=== PATIENT | male | born 1955 | race Caucasian/White ===

== ENCOUNTER → 2017-04-25 12:53 | Day surgery (SDC) | payer OTHER, SELFPAY ==
[2017-04-25 13:15] VITALS: BP 142/87; PULSE 103; RESP 20; TEMP 35.8; O2SAT 97; BMI 36.4
--- NOTE | 2017-04-25 13:57 | HMH.PMPROC ---
- Procedure Date: 04/25/17 Time: 13:57 Anesthesiologist:: Corey Ramos MD Complications:: None Pre-procedure Diagnosis:: Degenerative disc disease of lumbar spine multiple levels with lumbar postlaminectomy syndrome Post-procedure Diagnosis:: Same Indications for Procedure:: Patient is a pleasant 61-year-old white male who we are treating for low back pain with lumbar radiculopathy symptoms and lumbar postlaminectomy syndrome. He currently has an intrathecal morphine pain pump going at 5 mg per day. He is doing well with his intrathecal morphine pain pump. We will refill him today. He spends the majority of his time in a wheelchair. Motor strength of the lower extremities is 3-4 out of 5. Motor strength of the upper extremities is 5/5. There is no gross sensory deficit. He is having some increased pain down his legs. We will order lumbar MRI to discern any change in pathology. Procedure Details:: Pump refill informed consent was obtained and the risks and benefits of the procedure was explained to the patient. The patient was taken to the procedure room. The pump was interrogated. The area over the pump was prepped using ChloraPrep. The pump was accessed with a 22-gauge needle. Approximately 8 mL's of the intrathecal solution was withdrawn and discarded. The pump was then refilled with 20 mL's of intrathecal morphine 25 mg per ml. The pump was interrogated and the infusion was continued at 5 mg per day. The patient tolerated the procedure well with no complication. Plan and Disposition:: We will follow-up with him after his MRI. If he has any problems or questions she is to call me in the pain clinic
[2017-04-25 14:00] VITALS: BP 155/76; PULSE 88; RESP 20
[2017-04-25 14:09] VITALS: BP 149/86; PULSE 88; RESP 20
[2017-04-25 14:24] VITALS: BP 120/87; PULSE 99; RESP 18; TEMP 35.8; O2SAT 95
[2017-04-25 15:31] LABS: Amphetamine/Metha Screen,Urine Negative ng/mL (<1000); Barbiturates Screen,Urine Negative ng/mL (<200); Benzodiazepines Screen,Urine Positive ng/mL (200); Cannabinoid Screen,Urine Negative ng/mL (<50); Cocaine Screen,Urine Negative ng/g (<300); Methadone Screen,Urine Negative ng/mL (<300); Opiate Screen,Urine Positive ng/mL (<300); Phencyclidine Screen,Urine Negative ng/mL (<25)
[2017-04-30 18:11] LABS: Codeine Negative (Cutoff=100); Hydrocodone Negative (Cutoff=100); Hydromorphone Negative (Cutoff=100); Morphine Positive (.)
[2017-05-01 11:50] LABS: Opiates Positive (.)
== END ==
PROVIDERS: Family Provider Family Medicine; PCP Family Medicine; Visit Provider Anesthesiology
DX: M51.16 Intervertebral disc disorders with radiculopathy, lumbar region (principal); M96.1 Postlaminectomy syndrome, not elsewhere classified
CPT/HCPCS: 80305; 80361; 80365; 95991; G0480

== ENCOUNTER → 2018-09-15 12:30 | Outpatient (POV) | payer OTHER, SELFPAY ==
[2018-09-15 13:30] VITALS: BP 132/85; PULSE 70; RESP 18; BMI 30.7
--- NOTE | 2018-09-15 14:31 | HMH.PAINSOAP ---
[facility] Pain Management SOAP Note Subjective:: White male presents today for follow-up. Patient has an intrathecal pain pump. Patient currently on a morphine infusion. He states it does not work as well as it has in the past. Patient is asking about a switch to a fentanyl pump. I told him he we would not make that change prior to seeing of Dilaudid worked for him or not. Patient is interested in trying to switch off his medication for Dilaudid. He is been on morphine for quite some time. Patient is a home refill patient. He denies side effects his medication. He rates pain a 6 out of 10 however he recently had a vacation where his pain was increased significantly. Patient and I discussed if he was on vacation again that he can make an appointment in the office prior to discuss options moving forward. [facility] #[id number] reviewed and appropriate. Patient is been getting urine drug screens by [facility] pharmacy they have been appropriate. ROS General: no recent weight change, no fever, no sleep disturbances Respiratory: no cough, no shortness of air, no recurring pulmonary infections Cardiovascular/Peripheral Vascular: No chest pain, No palpitations, no edema, no shortness of breath. Gastrointestinal: no incontinence, normal bowel movements reported Genitourinary: no incontinence Musculoskeletal: Back pain, leg pain Psychiatric: normal mood/ affect Neurological: [denies weakness in extremities], [denies balance issues] Objective:: Physical Exam General: Alert and oriented x3, no acute distress, pleasant and cooperative, [on room air] Lungs: Resps E/U, Symmetrical chest expansion, Eyes: PERRL Musculoskeletal: Flexion and extension of lumbar spine somewhat guarded secondary to pain, deep tendon reflexes normal, strength in upper 5/ 5and lower extremities 3/5, utilizes wheelchair for mobility Neurological: speech clear, billet inspector equal, no gross sensory deficits Assessment:: Degenerative disc disease lumbar spine with lumbar radiculopathy and postlaminectomy syndrome lumbar spine Plan:: We will see the patient back in 6 months reassess symptoms at that time. I discussed with [facility] switching him till Dilaudid and move forward with this. He is been instructed to call the office if he has any issues prior to his next appointment. Dr. Ramos has reviewed this note and agrees with this plan of care. This note was dictated using voice recognition software and may contain errors or omissions
--- NOTE | 2018-09-15 14:34 | P.CONS_ITS ---
[facility] Pain Management SOAP Note Subjective:: White male presents today for follow-up. Patient has an intrathecal pain pump. Patient currently on a morphine infusion. He states it does not work as well as it has in the past. Patient is asking about a switch to a fentanyl pump. I told him he we would not make that change prior to seeing of Dilaudid worked for him or not. Patient is interested in trying to switch off his medication for Dilaudid. He is been on morphine for quite some time. Patient is a home refill patient. He denies side effects his medication. He rates pain a 6 out of 10 however he recently had a vacation where his pain was increased significantly. Patient and I discussed if he was on vacation again that he can make an appointment in the office prior to discuss options moving forward. [facility] #[id number] reviewed and appropriate. Patient is been getting urine drug screens by [facility] pharmacy they have been appropriate. ROS General: no recent weight change, no fever, no sleep disturbances Respiratory: no cough, no shortness of air, no recurring pulmonary infections Cardiovascular/Peripheral Vascular: No chest pain, No palpitations, no edema, no shortness of breath. Gastrointestinal: no incontinence, normal bowel movements reported Genitourinary: no incontinence Musculoskeletal: Back pain, leg pain Psychiatric: normal mood/ affect Neurological: [denies weakness in extremities], [denies balance issues] Objective:: Physical Exam General: Alert and oriented x3, no acute distress, pleasant and cooperative, [on room air] Lungs: Resps E/U, Symmetrical chest expansion, Eyes: PERRL Musculoskeletal: Flexion and extension of lumbar spine somewhat guarded secondary to pain, deep tendon reflexes normal, strength in upper 5/ 5and lower extremities 3/5, utilizes wheelchair for mobility Neurological: speech clear, greenskeeper supervisor equal, no gross sensory deficits Assessment:: Degenerative disc disease lumbar spine with lumbar radiculopathy and postlaminectomy syndrome lumbar spine Plan:: We will see the patient back in 6 months reassess symptoms at that time. I discussed with [facility] switching him till Dilaudid and move forward with this. He is been instructed to call the office if he has any issues prior to his next appointment. Dr. Ramos has reviewed this note and agrees with this plan of care. This note was dictated using voice recognition software and may contain errors or omissions
== END ==
PROVIDERS: PCP Family Medicine; Visit Provider Clinical Nurse Specialist Family Health
DX: M51.16 Intervertebral disc disorders with radiculopathy, lumbar region (principal); M96.1 Postlaminectomy syndrome, not elsewhere classified
CPT/HCPCS: 99212

== ENCOUNTER → 2019-03-15 09:28 | Outpatient (POV) | payer OTHER, SELFPAY ==
[2019-03-15 09:47] VITALS: BP 135/83; PULSE 109; RESP 18; O2SAT 99; BMI 33.5
--- NOTE | 2019-03-15 10:34 | HMH.PAINSOAP ---
[facility] Pain Management SOAP Note Subjective:: Patient is a pleasant 63-year-old white male who presents today for follow-up. Patient has a intrathecal pain pump. Patient is currently on a morphine infusion. He would like to switch to fentanyl. Patient has had good success with this in the past. We will move forward with this he rates his pain a 5 out of 10. Patient has recently lost 100 pounds. Patient's urine drug screens have been appropriate through [facility]. He is a home refill patient. [facility] #[id number] reviewed and appropriate. ROS General: no recent weight change, no fever, no sleep disturbances Respiratory: no cough, no shortness of air, no recurring pulmonary infections Cardiovascular/Peripheral Vascular: No chest pain, No palpitations, no edema, no shortness of breath. Gastrointestinal: no new onset incontinence, normal bowel movements reported Genitourinary: no new onset incontinence Musculoskeletal: Back pain Psychiatric: normal mood/ affect Neurological: [denies new onset weakness in extremities], [denies new onset balance issues] Objective:: Physical Exam General: Alert and oriented x3, no acute distress, pleasant and cooperative, [on room air] Lungs: Resps E/U, Symmetrical chest expansion, Eyes: PERRL Musculoskeletal: Flexion and extension of lumbar spine somewhat guarded secondary to pain, deep tendon reflexes normal, strength in upper and lower extremities [5/5], Neurological: speech clear, sports management professor equal, no gross sensory deficits Assessment:: Degenerative disc disease lumbar spine with lumbar radiculopathy and postlaminectomy syndrome Plan:: We will we will switch the patient to fentanyl we will start him at 200 mcg/mL concentration and start him on 50 mcg/day. Follow-up with him after this reassess his symptoms at that time he is been instructed to call the office if he has any issues prior to his next appointment Dr. Ramos has reviewed this note and agrees with this plan of care. This note was dictated using voice recognition software and may contain errors or omissions [facility] History I have reviewed the patient's past medical history: Yes Medical History: Reports:: Hypertension Denies:: Diabetes Mellitus Type 1, Diabetes Mellitus Type 2, Seizures *Have you ever received a pneumonia vaccine?: Yes *Have you received a flu vaccine this season?: Yes Laterality Cases: Bilateral: Tonsillectomy Other Surgeries: Yes: Other (low back sx) - *Social History Smoking Status: Former smoker Tobacco Type: cigarettes Alcohol Intake: never Alcohol Intake Frequency:: holidays/special occasions only *Occupational Status:: other Housing: house Household Members: spouse *Travel in the last 8 weeks: None Family Hx:: Cancer, Diabetes, Hyperlipidemia
== END ==
PROVIDERS: PCP Family Medicine; Visit Provider Clinical Nurse Specialist Family Health
DX: M51.16 Intervertebral disc disorders with radiculopathy, lumbar region (principal); M96.1 Postlaminectomy syndrome, not elsewhere classified; I10 Essential (primary) hypertension
CPT/HCPCS: 99212

== ENCOUNTER → 2019-09-13 10:43 | Outpatient (POV) | payer OTHER, SELFPAY ==
[2019-09-13 11:32] VITALS: BP 108/74; PULSE 115; RESP 18; TEMP 36.8; O2SAT 99; BMI 33.8
--- NOTE | 2019-09-13 12:28 | HMH.PAINSOAP ---
[facility] Pain Management SOAP Note Subjective:: Is a pleasant 64-year-old white male who presents today for follow-up. He has an intrathecal pain pump and is on home refill with [facility] and doing extremely well. He has been changed to fentanyl and his intrathecal infusion and doing well denies side effects and states is much more beneficial for his pain. He recently had his gallbladder removed. He rates his pain a 5 out of 10 patient is also going to be going under treatment for hepatitis C. ROS General: no recent weight change, no fever, no sleep disturbances Respiratory: no cough, no shortness of air, no recurring pulmonary infections Cardiovascular/Peripheral Vascular: No chest pain, No palpitations, no edema, no shortness of breath. Gastrointestinal: no new onset incontinence, normal bowel movements reported Genitourinary: no new onset incontinence Musculoskeletal: [Back pain, leg pain] Psychiatric: normal mood/ affect, [denies depression], [denies anxiety] Neurological: [denies new onset weakness in extremities], [denies new onset balance issues] Objective:: Physical Exam General: Alert and oriented x3, no acute distress, pleasant and cooperative, [on room air] Lungs: Resps E/U, Symmetrical chest expansion, Eyes: PERRL Musculoskeletal: Flexion and extension of lumbar spine somewhat guarded secondary to pain, deep tendon reflexes normal, strength in upper and lower extremities [4/5], utilizes powered wheelchair. Neurological: speech clear, chef under equal, no gross sensory deficits Assessment:: Degenerative disc disease lumbar spine with lumbar radiculopathy and postlaminectomy syndrome Plan:: We will see the patient back in 6 months reassess his symptoms at that time he has been instructed to call the office if he has any issues prior to his next appointment. We will continue with home refill at this time. Dr. Ramos has reviewed this note and agrees with this plan of care. This note was dictated using voice recognition software and may contain errors or omissions [facility] History I have reviewed the patient's past medical history: Yes Medical History: Reports:: Hypertension Denies:: Diabetes Mellitus Type 1, Diabetes Mellitus Type 2, Seizures *Have you ever received a pneumonia vaccine?: Yes *Have you received a flu vaccine this season?: Yes Laterality Cases: Bilateral: Tonsillectomy Other Surgeries: Yes: Other (low back sx) - *Social History Smoking Status: Former smoker Tobacco Type: cigarettes Alcohol Intake: never Alcohol Intake Frequency:: holidays/special occasions only *Occupational Status:: other Housing: house Household Members: spouse *Travel in the last 8 weeks: None Family Hx:: Cancer, Diabetes, Hyperlipidemia
== END ==
PROVIDERS: PCP Family Medicine; Visit Provider Clinical Nurse Specialist Family Health
DX: M51.16 Intervertebral disc disorders with radiculopathy, lumbar region (principal); M96.1 Postlaminectomy syndrome, not elsewhere classified
CPT/HCPCS: 99212

== ENCOUNTER → 2020-03-06 10:35 | Outpatient (POV) | payer OTHER, SELFPAY ==
--- NOTE | 2020-03-06 11:06 | HMH.PAINSOAP ---
[facility] Pain Management SOAP Note Subjective:: Patient is a pleasant 64-year-old white male who presents today for follow-up. Patient has an intrathecal pain pump and is on home refill with [facility] and is doing extremely well. Patient rates his pain today 4 out of 10. He is gone undergone treatment for hepatitis C and has now been cleared. He denies side effects to his medication. He is currently on a fentanyl infusion. ROS General: no recent weight change, no fever, no sleep disturbances Respiratory: no cough, no shortness of air, no recurring pulmonary infections Cardiovascular/Peripheral Vascular: No chest pain, No palpitations, no edema, no shortness of breath. Gastrointestinal: no new onset incontinence, normal bowel movements reported Genitourinary: no new onset incontinence Musculoskeletal: Back pain, leg pain Psychiatric: normal mood/ affect Neurological: [denies new onset weakness in extremities], [denies new onset balance issues] Objective:: Physical Exam General: Alert and oriented x3, no acute distress, pleasant and cooperative, [on room air] Lungs: Resps E/U, Symmetrical chest expansion, Eyes: PERRL Musculoskeletal: Flexion and extension of lumbar spine somewhat guarded secondary to pain, deep tendon reflexes normal, strength in upper and lower extremities [5/5], [abnormal gait noted] Neurological: speech clear, hotel superintendent equal, no gross sensory deficits Assessment:: Degenerative disc disease lumbar spine with lumbar radiculopathy and postlaminectomy syndrome Plan:: We will see the patient back in 6 months reassess his symptoms at that time he has been instructed to call the office if he has any issues prior to his next appointment. [facility] #[id number] reviewed and appropriate. The patient did discuss that he may go on a trip and may require some breakthrough medications. We discussed that if this comes about that we will address it at that time. Dr. Ramos has reviewed this note and agrees with this plan of care. This note was dictated using voice recognition software and may contain errors or omissions [facility] History I have reviewed the patient's past medical history: Yes Medical History: Reports:: Hypertension Denies:: Diabetes Mellitus Type 1, Diabetes Mellitus Type 2, Seizures *Have you ever received a pneumonia vaccine?: Yes *Have you received a flu vaccine this season?: Yes Laterality Cases: Bilateral: Tonsillectomy Other Surgeries: Yes: Other (low back sx) - *Social History Smoking Status: Former smoker Tobacco Type: cigarettes Alcohol Intake: never Alcohol Intake Frequency:: holidays/special occasions only *Occupational Status:: other Housing: house Household Members: spouse *Travel in the last 8 weeks: None Family Hx:: Cancer, Diabetes, Hyperlipidemia
[2020-03-06 11:53] VITALS: BP 148/78; PULSE 89; RESP 18; TEMP 36.9; O2SAT 98; BMI 36.7
== END ==
PROVIDERS: Visit Provider Clinical Nurse Specialist Family Health
DX: M51.16 Intervertebral disc disorders with radiculopathy, lumbar region (principal); M96.1 Postlaminectomy syndrome, not elsewhere classified
CPT/HCPCS: 99212; G0463

== ENCOUNTER → 2020-06-19 10:54 | Outpatient (POV) | payer OTHER, SELFPAY ==
[2020-06-19 11:23] VITALS: BP 129/77; PULSE 89; RESP 18; TEMP 36.8; O2SAT 98; BMI 36.7
--- NOTE | 2020-06-19 12:53 | HMH.PMPROC ---
- Procedure Date: 06/19/20 Time: 12:53 Anesthesiologist:: Belinda Coughlin APRN Complications:: None Pre-procedure Diagnosis:: Degenerative disc disease lumbar spine lumbar radiculopathy, back pain, postlaminectomy syndrome Post-procedure Diagnosis:: Same Indications for Procedure:: Patient is a pleasant 64-year-old white male who presents today for intrathecal pain pump adjustment. Patient is going to be traveling. He has a fentanyl intrathecal pain pump that is going at 100 mcg/day. He rates his pain today a 6 out of 10. He would like an increase and also did discuss breakthrough pain on his trip. They will be driving a long distance. He is home refill at this time. He denies side effects to his medication. [facility] #[id number] reviewed. Procedure Details:: Informed consent was obtained and the risk and benefits of the procedure were explained to the patient. The patient was taken to the procedure room where noninvasive monitoring was placed including noninvasive blood pressure cuff and pulse oximeter. Patient's pump was interrogated and reprogrammed. The infusion rate was increased to 120 mcg of fentanyl per day. The patient tolerated the procedure well. Plan and Disposition:: We will give him [place] 5 mg 1 p.o. 3 times daily as needed for pain while he is traveling. We will give him 10 days worth. We will follow up with him after reassess his symptoms at that time. He has been instructed to call our office if he has any issues. Dr. Ramos has reviewed this note and agrees with this plan of care. This note was dictated using voice recognition software and may contain errors or omissions
== END ==
PROVIDERS: Visit Provider Clinical Nurse Specialist Family Health
DX: M51.16 Intervertebral disc disorders with radiculopathy, lumbar region (principal); M96.1 Postlaminectomy syndrome, not elsewhere classified; Z45.1 Encounter for adjustment and management of infusion pump
CPT/HCPCS: 62368

== ENCOUNTER → 2020-11-30 10:52 | Outpatient (POV) | payer OTHER, SELFPAY ==
[2020-11-30 11:14] VITALS: BP 196/99; PULSE 74; RESP 18; O2SAT 96; BMI 34.9
--- NOTE | 2020-11-30 12:11 | HMH.PMPROC ---
- Procedure Date: 11/30/20 Time: 11:30 Anesthesiologist:: Tessa Panchal APRN Complications:: None Pre-procedure Diagnosis:: Degenerative disc disease lumbar spine with lumbar radiculopathy symptoms, postlaminectomy syndrome lumbar spine Post-procedure Diagnosis:: Same Indications for Procedure:: Patient is a 65-year-old white male who presents today for intrathecal pain pump adjustment. The patient is a home refill patient through [facility]. He is present with his today. The patient's reports that the patient has been having severe pain in his low back since early November. The pain is progressively worsened. Patient says that the pain is wrapping around his low back area and into the bilateral lower extremities. He is having to lift his right lower extremity to put his shoes on. He is unable to stand or walk. He is in a motorized wheelchair today. He currently has fentanyl in his intrathecal pump at 120 mcg/day. The reports that they will be traveling soon via car on vacation. She is requesting breakthrough pain medication. The patient is currently on gabapentin 800 mg 1 tablet p.o. 3 times daily by his primary care provider, and also takes diazepam 10 mg as needed. The does admit that she has been giving the patient Phenergan for nausea because Zofran has not been working. She also admits to have been giving the patient [place] from leftover medication that she had from previous surgeries. Patient says that the medication did not give the patient significant relief, however, made his pain more tolerable. Today, the patient rates his pain a 6 out of 10. They would like to have [place] to take for the drive to and from vacation. Patient says he was given [place] in June 2020 and it did help somewhat while traveling. Physical exam General: Alert and oriented x3, no acute distress, pleasant and cooperative, [on room air] Lungs: Respirations even and unlabored, symmetrical chest expansion Eyes: PERRL Musculoskeletal: Flexion and extension of lumbar [spine] somewhat guarded secondary to pain, motorized wheelchair unable to assess gait Neurological: Speech clear, [home economics expert equal], no gross sensory deficit Procedure Details:: Informed consent was obtained and the risk and benefits of the procedure were explained to the patient. Patient was taken to the procedure room where noninvasive monitoring was placed including noninvasive blood pressure cuff and pulse oximeter. Patient's pump was interrogated and was reprogrammed to fentanyl 140 mcg/day. The patient tolerated the procedure well with no complications. Plan and Disposition:: I had a very long discussion with the patient and his . They have been advised that he is at high risk for oversedation with the medications he is taking. I have also expressed concern of oversedation when the patient is being giving medications that are not prescribed to him with intrathecal therapy. The patient has been informed that I will order Narcan for risk of oversedation. The patient was discussed thoroughly with Dr. Ramos. Due to the patient's current medication regimen, he is at a very high risk of oversedation, and does not feel comfortable giving the patient any other oral medications. He has also asked that the patient be advised to not take any medications not prescribed to him. If the patient does continue with oral medications with intrathecal therapy, he will need to wane with his intrathecal therapy and the pump will be turned off per Dr. Ramos. Given the change in the patient's symptoms, and worsening pain, however, there is concern for new pathology. Patient was doing well with his intrathecal therapy until recently. In November the patient's pain began to worsen. Given his change in symptoms, we will order an MRI of the patient's lumbar spine. I did attempt to call the patient and his through inform them that Dr. Ramos does not feel comfortable pres
== END ==
PROVIDERS: Visit Provider Clinical Nurse Specialist Family Health
DX: M51.16 Intervertebral disc disorders with radiculopathy, lumbar region (principal); M96.1 Postlaminectomy syndrome, not elsewhere classified; Z45.1 Encounter for adjustment and management of infusion pump
CPT/HCPCS: 62368; 99212; G0463

== ENCOUNTER → 2020-12-29 10:46 | Outpatient (POV) | payer OTHER, SELFPAY ==
[2020-12-29 11:23] VITALS: BP 185/76; PULSE 64; RESP 18; O2SAT 97; BMI 34.9
--- NOTE | 2020-12-29 11:42 | HMH.PMPROC ---
- Procedure Date: 12/29/20 Time: 11:42 Anesthesiologist:: Corey Ramos MD Complications:: None Pre-procedure Diagnosis:: Degenerative disc disease of lumbar spine with lumbar radiculopathy symptoms and severe spinal stenosis at L3-L4 Post-procedure Diagnosis:: Same Indications for Procedure:: Patient is a pleasant 65-year-old white male who we are treating for low back pain with lumbar radiculopathy symptoms with severe spinal stenosis most recently at the L3-L4 interspace. He has severe facet hypertrophy, ligamentum flavum thickening worsening since his last MRI. He has had increasing pain over the last 2 months and has severely deteriorated. We will adjust his intrathecal fentanyl pain pump to give him some relief. We have also referred him to Dr. Crow for neurosurgical evaluation. Procedure Details:: Adjustment of intrathecal fentanyl pain pump infusion Informed consent was obtained risk and benefits of the procedure were explained to the patient. Patient was taken the procedure room. The pump was interrogated. Intrathecal fentanyl infusion was increased to 200 mcg/day from 140 mcg/day. Patient tolerated procedure well with no complications. Plan and Disposition:: We will communicate this change to his [facility] home refill nurse. He will may need to be refilled early. We will refer him to Dr. Crow for neurosurgical evaluation. We will follow-up with him after he sees Dr. Crow.
== END ==
PROVIDERS: PCP Family Medicine; Visit Provider Anesthesiology
DX: M51.16 Intervertebral disc disorders with radiculopathy, lumbar region (principal); M48.061 Spinal stenosis, lumbar region without neurogenic claudication
CPT/HCPCS: 62368; 99212; G0463

== ENCOUNTER → 2021-11-09 11:34 | Outpatient (POV) | payer OTHER, SELFPAY ==
[2021-11-09 12:00] VITALS: BP 149/86; PULSE 68; RESP 20; TEMP 36.4; O2SAT 95; BMI 33.7
--- NOTE | 2021-11-09 14:00 | P.PCN_ITS ---
Procedure Date: 11/09/21 Time: 14:00 Anesthesiologist:: Corey Ramos MD Complications:: None Pre-procedure Diagnosis:: Postlaminectomy syndrome lumbar spine with lumbar radiculopathy symptoms and increasing back pain and abdominal pain Post-procedure Diagnosis:: Same Indications for Procedure:: Patient is a pleasant 66-year-old white male who we have been treating for low back pain with lumbar radiculopathy symptoms and postlaminectomy syndrome as well as abdominal pain. He is currently on intrathecal fentanyl at 160 mcg/day. We did see on his Jorge that he has been receiving oxycodone from his primary care provider. I have had a long discussion with this patient about receiving o xycodone on top of his intrathecal fentanyl pain pump and the risk associated with this. He has been treated with oxycodone for his abdominal pain. He does have gastroparesis and significant abdominal pain. 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 I have talked to the patient and his extensively about the options of either continue with the pain pump and no oxycodone or continue with oxycodone and we will wean his pain pump and transition him over to bupivacaine to prevent any increased risk. The patient has decided that he will talk to his primary care about oxycodone. We are okay with this we will continue to transition him to bupivacaine and wean down the fentanyl. Procedure Details:: Informed consent was obtained risk and benefits of the procedure were explained to the patient. Patient was taken the procedure room. The pump was interrogated. Intrathecal fentanyl was decreased to 140 mcg/day. Patient tolerated the procedure well with no complications. Plan and Disposition:: We will communicate this to the [facility] home health nurse to continue to wean his fentanyl and transition him to bupivacaine 5 mg/mL to start at 2.5 mg/day. He can continue with oxycodone from his primary care provider. I did recommend that we will have him follow-up with his neurosurgeon as I feel like he is certainly in need of proceeding with surgical intervention if recommended by the neurosurgeon.
== END | disposition home or self-care (01) ==
PROVIDERS: PCP Family Medicine; Visit Provider Anesthesiology
DX: M54.16 Radiculopathy, lumbar region (principal); M96.1 Postlaminectomy syndrome, not elsewhere classified
CPT/HCPCS: 62368; 99212; G0463

== ENCOUNTER → 2022-05-24 12:16 | Outpatient (POV) | payer OTHER, SELFPAY ==
[2022-05-24 13:07] VITALS: BP 138/68; PULSE 57; RESP 18; O2SAT 94; BMI 30.5
--- NOTE | 2022-05-24 15:18 | EXP.PAIN.PRO ---
Procedure Date: 05/24/22 Time: 15:18 Anesthesiologist:: Corey Ramos MD Complications:: None Pre-procedure Diagnosis:: Postlaminectomy syndrome of the lumbar spine with lumbar radiculopathy symptoms Post-procedure Diagnosis:: Same Indications for Procedure:: Patient is a pleasant 66-year-old white male who we are treating for low back pain with lumbar radicular symptoms. He has had previous surgery and is scheduled for repeat back surgery on June 20. We are decreasing his pump in anticipation of switching to intrathecal bupivacaine or explant. We will further decrease his intrathecal fentanyl infusion today. He may have his pump explanted during his surgery. Procedure Details:: Informed consent was obtained risk and benefits of the procedure was explained to the patient. The patient was taken the procedure room. The pump was interrogated. Intrathecal fentanyl infusion was decreased to 50 mcg/day. Patient tolerated the procedure well with no complications. Plan and Disposition:: We will follow-up with the patient after his surgery. He may have his pump explanted during his surgery. We will further follow him after he is recovered from this more recent back surgery. He has enough medication until February 26, 2023
== END | disposition home or self-care (01) ==
PROVIDERS: PCP Family Medicine; Visit Provider Anesthesiology
DX: Z45.1 Encounter for adjustment and management of infusion pump (principal); M96.1 Postlaminectomy syndrome, not elsewhere classified; M54.16 Radiculopathy, lumbar region
CPT/HCPCS: 62368; 99213; G0463

== ENCOUNTER 2022-12-20 10:37 | Day surgery (SDC) | payer OTHER, SELFPAY ==
[2022-12-20 11:40] VITALS: BP 179/79; PULSE 72; RESP 18; O2SAT 97; BMI 31.8
[2022-12-20 13:05] VITALS: BP 192/93; PULSE 56; RESP 18; O2SAT 96
[2022-12-20 13:07] VITALS: BP 192/93; PULSE 56; RESP 18; O2SAT 96
[2022-12-20 13:44] VITALS: BP 199/89; PULSE 58; RESP 20; O2SAT 97
--- NOTE | 2022-12-20 16:46 | P.PCN_ITS ---
Procedure Date: 12/20/22 Time: 16:46 Anesthesiologist:: Corey Ramos MD Complications:: None Pre-procedure Diagnosis:: Postlaminectomy syndrome lumbar spine with lumbar radiculopathy symptoms Post-procedure Diagnosis:: Same Indications for Procedure:: This patient is a pleasant 67-year-old white male who we are treating for postlaminectomy syndrome lumbar spine with lumbar radiculopathy symptoms. He is recently had surgery and is doing much better. He is weaning himself down on his oral medications. We have weaned his intrathecal fentanyl pain pump down to 15 mcg/day. He does have some side effects with intrathecal opioid so we are switching him to intrathecal bupivacaine today. He does have antalgic gait. Motor strength of lower extremities is 4 out of 5. There is no gross sensory deficit. Jorge and drug screen are all appropriate. Procedure Details:: Informed consent was obtained and the risks and benefits of the procedure was explained to the patient. The patient was taken to the procedure room. The pump was interrogated. The area over the pump was prepped using ChloraPrep. The pump was accessed with a 22-gauge needle. Approximately 4 mL's of the intrathecal solution was withdrawn and discarded. The pump was then refilled with 20 mL's of intrathecal bupivacaine 5 mg per mill. The pump was interrogated and the infusion was started at 2.5 mg/day. However we were not able to access the catheter access port to withdraw medication from the catheter so the patient had to undergo a bridge bolus of 600 hours. We will communicate this to his [facility] home health refill nurse. The patient tolerated the procedure well with no complication. Plan and Disposition:: We will follow-up with him through his [facility] home health refill nurse. He has about a 600-hour bridge bolus if he has any problems he is to call us back in the pain clinic.
== END 2022-12-20 13:45 | disposition home or self-care (01) ==
LOC: SC.PAINP 10:38
PROVIDERS: PCP Family Medicine; Visit Provider Anesthesiology
DX: M96.1 Postlaminectomy syndrome, not elsewhere classified (principal); M54.16 Radiculopathy, lumbar region; Z97.8 Presence of other specified devices
CPT/HCPCS: 95991; C1772